=== PATIENT | female | born 1995 | race Caucasian/White ===

== ENCOUNTER 2017-02-14 17:23 | Emergency (ER) | payer OTHER ==
[~2017-02-14] VITALS: Ht 152.4 cm; Wt 51.2 kg
[2017-02-14 20:27] VITALS: BP 111/69
== END 2017-02-14 20:27 | disposition home or self-care (01) ==
LOC: ED 17:23
DX: L05.91 Pilonidal cyst without abscess (principal)
CPT/HCPCS: Q0163